=== PATIENT | male | born 1970 | race American Indian/Alaskan Native ===

== ENCOUNTER 2020-02-03 10:01 | Inpatient (IN) | payer SELFPAY ==
[2020-02-03] MEDS ORDERED: SODIUM CHLORIDE 0.9% 1000 ML 1,000 ML IV ONE (10:56)
--- NOTE | 2020-02-03 11:09 | Emergency Department Report ---
ED Altered Mental Status HPI - General Chief Complaint: Medical Clearance Stated Complaint: AMS Time Seen by Provider: 02/03/20 10:56 Source: patient, EMS Mode of arrival: Stretcher Limitations: No Limitations - History of Present Illness Initial Comments: Patient is 49 years old male with history of hypertension, CVA and congestive heart failure. Patient brought to the emergency room via EMS from home after patient became altered and combative with his family. EMS have to sedate the patient with Benadryl, Versed and Haldol for chemical restraint. EMS stated that family for them that he started talking about his son that has been murdered 4 years ago. They stated that he started blaming neighbors and stating that they are the one who kill him. Upon arrival to the ER patient is sedated. Vital signs stable except for slightly low blood pressure of 95/41 patient given normal saline. When examined patient approximately 20 minutes later he is alert but is still confused. Patient is oriented in place, person but not time. Patient is answering most of the questions inappropriately. Patient is kept talking about that his doctor is a captain and he kept mentioning [place] guys and when asking more about that he refused to answer. When asked about if he is depressed or suicidal he refused to answer. Patient also denied alcohol or drug abuse. MD Complaint: altered mental status -: Sudden, This morning Severity: severe Context: unknown - Related Data Home Medications Medication Instructions Recorded Confirmed Last Taken Furosemide [Lasix TAB] 40 mg PO BID 02/03/20 02/03/20 Unknown Glimepiride [Amaryl] 4 mg PO BID 02/03/20 02/03/20 Unknown NIFEdipine [Nifedipine ER] 60 mg PO BID 02/03/20 02/03/20 Unknown Sildenafil [Revatio] 20 mg PO TID PRN 02/03/20 02/03/20 Unknown Simvastatin 20 mg PO QHS 02/03/20 02/03/20 Unknown cloNIDine [Catapres] 0.1 mg PO BID 02/03/20 02/03/20 Unknown hydrALAZINE [Apresoline TAB] 100 mg PO TID 02/03/20 02/03/20 Unknown Allergies Allergy/AdvReac Type Severity Reaction Status Date / Time No Known Allergies Allergy Unverified 03/30/13 10:24 ED Review of Systems ROS: Stated complaint: AMS Other details as noted in HPI Comment: All other systems reviewed and negative Constitutional: denies: chills, fever Respiratory: denies: cough, shortness of breath, SOB with exertion, SOB at rest, wheezing Cardiovascular: denies: chest pain, palpitations Gastrointestinal: denies: abdominal pain, nausea, vomiting Neurological: denies: headache, weakness, numbness, paresthesias, confusion ED Past Medical Hx - Past Medical History Hx Hypertension: Yes (Diagnosed in 2005) Hx CVA: Yes Hx Congestive Heart Failure: Yes (2005) Hx Diabetes: Yes Hx Renal Disease: Yes Hx Asthma: No Hx COPD: No - Surgical History Past Surgical History?: No - Social History Smoking Status: Unknown if ever smoked - Medications Home Medications: Home Medications Medication Instructions Recorded Confirmed Last Taken Type Furosemide [Lasix TAB] 40 mg PO BID 02/03/20 02/03/20 Unknown History Glimepiride [Amaryl] 4 mg PO BID 02/03/20 02/03/20 Unknown History NIFEdipine [Nifedipine ER] 60 mg PO BID 02/03/20 02/03/20 Unknown History Sildenafil [Revatio] 20 mg PO TID PRN 02/03/20 02/03/20 Unknown History Simvastatin 20 mg PO QHS 02/03/20 02/03/20 Unknown History cloNIDine [Catapres] 0.1 mg PO BID 02/03/20 02/03/20 Unknown History hydrALAZINE [Apresoline TAB] 100 mg PO TID 02/03/20 02/03/20 Unknown History ED Physical Exam - General Limitations: No Limitations General appearance: alert, in no apparent distress - Head Head exam: Present: atraumatic, normocephalic, normal inspection - Eye Eye exam: Present: normal appearance, PERRL - ENT ENT exam: Present: normal exam, normal orophraynx, mucous membranes moist - Neck Neck exam: Present: normal inspection, full ROM. Absent: tenderness, meningismus, lymphadenopathy, thyromegaly - Respiratory Respiratory exam: Present: normal lung sounds bilaterally - Cardiovascular Cardiovascular Exam: Present: bradycardia. Absent: irregular rhythm, systolic murmur, diastolic murmur - GI/Abdominal GI/Abdominal exam: Present: soft, normal bowel sounds. Absent: distended, tenderness, guarding, rebound, rigid, organomegaly, mass, bruit, pulsatile mass, hernia - Extremities Exam Extremities exam: Present: normal inspection, full ROM, normal capillary refill. Absent: tenderness, pedal edema, joint swelling, calf tenderness - Back Exam Back exam: Present: normal inspection, full ROM. Absent: CVA tenderness (R), CVA tenderness (L), muscle spasm, paraspinal tenderness, vertebral tenderness - Neurological Exam Neurological exam: Present: alert, altered, CN II-XII intact, reflexes normal. Absent: motor sensory deficit - Psychiatric Psychiatric exam: Present: anxious, manic - Skin Skin exam: Present: warm, intact, normal color - Assessment Assessment Interval: Baseline - Level of Consciousness 1a. Level of Consciousness: alert/keenly responsive - LOC Questions 1b. LOC Questions: answers both correctly - LOC Command 1c. LOC Commands: performs tasks correctly - Best Gaze 2. Best Gaze: normal - Visual 3. Visual: no visual loss - Facial Palsy 4. Facial Palsy: normal symmetrical movement - Motor Arm 5a. Motor Arm Left: no drift 5b. Motor Arm Right: no drift - Motor Leg 6a. Motor Leg Left: no drift 6b. Motor Leg Right: no drift - Limb Ataxia 7. Limb Ataxia: absent - Sensory 8. Sensory: normal - Best Language 9. Best Language: no aphasia - Dysarthria 10. Dysarthria: normal - Extinction and Inattention 11. Extinction/Inattention: no abnormality - Scoring Total Score: 0 Stroke Severity: No Stroke Symptoms ED Course Vital Signs 02/03/20 02/03/20 02/03/20 10:18 10:29 11:01 Temperature 98.0 F Pulse Rate 49 L 50 L Respiratory 16 16 Rate Blood Pressure 167/80 Blood Pressure 95/49 [Right] O2 Sat by Pulse 99 98 100 Oximetry 02/03/20 02/03/20 02/03/20 11:45 12:01 13:40 Temperature Pulse Rate 49 L 56 L Respiratory 16 17 Rate Blood Pressure 174/82 149/102 180/70 Blood Pressure [Right] O2 Sat by Pulse 99 99 Oximetry 02/03/20 02/03/20 02/03/20 14:01 17:57 19:55 Temperature Pulse Rate 50 L 58 L Respiratory 16 21 Rate Blood Pressure 161/67 146/69 Blood Pressure 145/73 [Right] O2 Sat by Pulse 100 Oximetry 02/03/20 02/03/20 02/03/20 19:56 20:00 20:09 Temperature 98.2 F Pulse Rate 66 Respiratory 16 19 Rate Blood Pressure 145/73 Blood Pressure [Right] O2 Sat by Pulse 100 100 Oximetry 02/03/20 02/03/20 02/03/20 20:15 20:31 20:45 Temperature Pulse Rate 60 58 L 57 L Respiratory 14 18 11 L Rate Blood Pressure 145/73 145/73 145/73 Blood Pressure [Right] O2 Sat by Pulse 100 100 100 Oximetry 02/03/20 02/03/20 02/03/20 21:01 21:15 22:02 Temperature Pulse Rate Respiratory Rate Blood Pressure 142/70 142/70 188/77 Blood Pressure [Right] O2 Sat by Pulse 100 100 Oximetry 02/03/20 02/04/20 02/04/20 23:00 00:01 01:01 Temperature Pulse Rate Respiratory Rate Blood Pressure 158/80 162/75 158/77 Blood Pressure [Right] O2 Sat by Pulse Oximetry - Reevaluation(s) Reevaluation #1: 02/03/20 13:46 Patient became agitated and tried to pull the partition between between his rooms and other room and start fighting with other patients. Patient given Geodon 20 mg IM for chemical restraints. - Lab Data Result diagrams: 02/04/20 05:09 02/04/20 05:09 Lab Results 02/03/20 02/03/20 02/03/20 Range/Units 10:50 11:11 11:11 WBC 4.6 (4.5-11.0) K/mm3 RBC 4.08 (3.65-5.03) M/mm3 Hgb 12.2 (11.8-15.2) gm/dl Hct 36.4 (35.5-45.6) % MCV 89 (84-94) fl MCH 30 (28-32) pg MCHC 34 (32-34) % RDW 12.7 L (13.2-15.2) % Plt Count 186 (140-440) K/mm3 Lymph % (Auto) 22.5 (13.4-35.0) % [place] % (Auto) 19.3 H (0.0-7.3) % Eos % (Auto) 2.1 (0.0-4.3) % Baso % (Auto) 1.0 (0.0-1.8) % Lymph # 1.0 L (1.2-5.4) K/mm3 [place] # 0.9 H (0.0-0.8) K/mm3 Eos # 0.1 (0.0-0.4) K/mm3 Baso # 0.0 (0.0-0.1) K/mm3 Seg Neutrophils % 55.1 (40.0-70.0) % Seg Neutrophils # 2.5 (1.8-7.7) K/mm3 PT 13.8 (12.2-14.9) Sec. INR 1.05 (0.87-1.13) APTT 31.9 (24.2-36.6) Sec. Sodium (137-145) mmol/L Potassium (3.6-5.0) mmol/L Chloride (98-107) mmol/L Carbon Dioxide (22-30) mmol/L Anion Gap mmol/L BUN (9-20) mg/dL Creatinine (0.8-1.5) mg/dL Estimated GFR ml/min BUN/Creatinine Ratio % Glucose (75-100) mg/dL Lactic Acid (0.7-2.0) mmol/L Calcium (8.4-10.2) mg/dL Total Bilirubin (0.1-1.2) mg/dL Direct Bilirubin (0-0.2) mg/dL AST (5-40) units/L ALT (7-56) units/L Alkaline Phosphatase (35-129) units/L Ammonia (25-60) umol/L Troponin T (0.00-0.029) ng/mL Total Protein (6.3-8.2) g/dL Albumin (3.9-5) g/dL Albumin/Globulin Ratio % Triglycerides (2-149) mg/dL Cholesterol (50-199) mg/dL LDL Cholesterol Direct (50-130) mg/dL HDL Cholesterol (40-59) mg/dL Cholesterol/HDL Ratio % Urine Color (Yellow) Urine Turbidity (Clear) Urine pH (5.0-7.0) Ur Specific [place] (1.003-1.030) Urine Protein (Negative) mg/dL Urine Glucose (UA) (Negative) mg/dL Urine Ketones (Negative) mg/dL Urine Blood (Negative) Urine Nitrite (Negative) Urine Bilirubin (Negative) Urine Urobilinogen (<2.0) mg/dL Ur Leukocyte Esterase (Negative) Urine WBC (Auto) (0.0-6.0) /HPF Urine RBC (Auto) (0.0-6.0) /HPF Salicylates (2.8-20.0) mg/dL Urine Opiates Screen Negative Urine Methadone Screen Negative Acetaminophen (10.0-30.0) ug/mL Ur Barbiturates Screen Negative Ur Phencyclidine Scrn Negative Ur Amphetamines Screen Negative U Benzodiazepines Scrn Negative Urine Cocaine Screen Negative U Marijuana (THC) Screen Negative Drugs of Abuse Note Disclamer Plasma/Serum Alcohol (0-0.07) % 02/03/20 02/03/20 02/03/20 Range/Units 11:11 11:11 11:11 WBC (4.5-11.0) K/mm3 RBC (3.65-5.03) M/mm3 Hgb (11.8-15.2) gm/dl Hct (35.5-45.6) % MCV (84-94) fl MCH (28-32) pg MCHC (32-34) % RDW (13.2-15.2) % Plt Count (140-440) K/mm3 Lymph % (Auto) (13.4-35.0) % [place] % (Auto) (0.0-7.3) % Eos % (Auto) (0.0-4.3) % Baso % (Auto) (0.0-1.8) % Lymph # (1.2-5.4) K/mm3 [place] # (0.0-0.8) K/mm3 Eos # (0.0-0.4) K/mm3 Baso # (0.0-0.1) K/mm3 Seg Neutrophils % (40.0-70.0) % Seg Neutrophils # (1.8-7.7) K/mm3 PT (12.2-14.9) Sec. INR (0.87-1.13) APTT (24.2-36.6) Sec. Sodium 144 (137-145) mmol/L Potassium 3.0 L (3.6-5.0) mmol/L Chloride 97.9 L (98-107) mmol/L Carbon Dioxide 30 (22-30) mmol/L Anion Gap 19 mmol/L BUN 30 H (9-20) mg/dL Creatinine 4.2 H (0.8-1.5) mg/dL Estimated GFR 18 ml/min BUN/Creatinine Ratio 7 % Glucose 53 L (75-100) mg/dL Lactic Acid 1.00 (0.7-2.0) mmol/L Calcium 11.1 H (8.4-10.2) mg/dL Total Bilirubin 0.50 (0.1-1.2) mg/dL Direct Bilirubin < 0.2 (0-0.2) mg/dL AST 40 (5-40) units/L ALT 17 (7-56) units/L Alkaline Phosphatase 38 (35-129) units/L Ammonia (25-60) umol/L Troponin T 0.084 H (0.00-0.029) ng/mL Total Protein 7.1 (6.3-8.2) g/dL Albumin 4.7 (3.9-5) g/dL Albumin/Globulin Ratio 2.0 % Triglycerides 114 (2-149) mg/dL Cholesterol 102 (50-199) mg/dL LDL Cholesterol Direct 45 L (50-130) mg/dL HDL Cholesterol 48 (40-59) mg/dL Cholesterol/HDL Ratio 2.12 % Urine Color (Yellow) Urine Turbidity (Clear) Urine pH (5.0-7.0) Ur Specific [place] (1.003-1.030) Urine Protein (Negative) mg/dL Urine Glucose (UA) (Negative) mg/dL Urine Ketones (Negative) mg/dL Urine Blood (Negative) Urine Nitrite (Negative) Urine Bilirubin (Negative) Urine Urobilinogen (<2.0) mg/dL Ur Leukocyte Esterase (Negative) Urine WBC (Auto) (0.0-6.0) /HPF Urine RBC (Auto) (0.0-6.0) /HPF Salicylates < 0.3 L (2.8-20.0) mg/dL Urine Opiates Screen Urine Methadone Screen Acetaminophen (10.0-30.0) ug/mL Ur Barbiturates Screen Ur Phencyclidine Scrn Ur Amphetamines Screen U Benzodiazepines Scrn Urine Cocaine Screen U Marijuana (THC) Screen Drugs of Abuse Note Plasma/Serum Alcohol (0-0.07) % 02/03/20 02/03/20 02/03/20 Range/Units 11:11 11:11 11:11 WBC (4.5-11.0) K/mm3 RBC (3.65-5.03) M/mm3 Hgb (11.8-15.2) gm/dl Hct (35.5-45.6) % MCV (84-94) fl MCH (28-32) pg MCHC (32-34) % RDW (13.2-15.2) % Plt Count (140-440) K/mm3 Lymph % (Auto) (13.4-35.0) % [place] % (Auto) (0.0-7.3) % Eos % (Auto) (0.0-4.3) % Baso % (Auto) (0.0-1.8) % Lymph # (1.2-5.4) K/mm3 [place] # (0.0-0.8) K/mm3 Eos # (0.0-0.4) K/mm3 Baso # (0.0-0.1) K/mm3 Seg Neutrophils % (40.0-70.0) % Seg Neutrophils # (1.8-7.7) K/mm3 PT (12.2-14.9) Sec. INR (0.87-1.13) APTT (24.2-36.6) Sec. Sodium (137-145) mmol/L Potassium (3.6-5.0) mmol/L Chloride (98-107) mmol/L Carbon Dioxide (22-30) mmol/L Anion Gap mmol/L BUN (9-20) mg/dL Creatinine (0.8-1.5) mg/dL Estimated GFR ml/min BUN/Creatinine Ratio % Glucose (75-100) mg/dL Lactic Acid (0.7-2.0) mmol/L Calcium (8.4-10.2) mg/dL Total Bilirubin (0.1-1.2) mg/dL Direct Bilirubin (0-0.2) mg/dL AST (5-40) units/L ALT (7-56) units/L Alkaline Phosphatase (35-129) units/L Ammonia 43.0 (25-60) umol/L Troponin T (0.00-0.029) ng/mL Total Protein (6.3-8.2) g/dL Albumin (3.9-5) g/dL Albumin/Globulin Ratio % Triglycerides (2-149) mg/dL Cholesterol (50-199) mg/dL LDL Cholesterol Direct (50-130) mg/dL HDL Cholesterol (40-59) mg/dL Cholesterol/HDL Ratio % Urine Color (Yellow) Urine Turbidity (Clear) Urine pH (5.0-7.0) Ur Specific [place] (1.003-1.030) Urine Protein (Negative) mg/dL Urine Glucose (UA) (Negative) mg/dL Urine Ketones (Negative) mg/dL Urine Blood (Negative) Urine Nitrite (Negative) Urine Bilirubin (Negative) Urine Urobilinogen (<2.0) mg/dL Ur Leukocyte Esterase (Negative) Urine WBC (Auto) (0.0-6.0) /HPF Urine RBC (Auto) (0.0-6.0) /HPF Salicylates (2.8-20.0) mg/dL Urine Opiates Screen Urine Methadone Screen Acetaminophen < 5.0 L (10.0-30.0) ug/mL Ur Barbiturates Screen Ur Phencyclidine Scrn Ur Amphetamines Screen U Benzodiazepines Scrn Urine Cocaine Screen U Marijuana (THC) Screen Drugs of Abuse Note Plasma/Serum Alcohol < 0.01 (0-0.07) % 02/03/20 02/03/20 Range/Units 11:16 14:30 WBC (4.5-11.0) K/mm3 RBC (3.65-5.03) M/mm3 Hgb (11.8-15.2) gm/dl Hct (35.5-45.6) % MCV (84-94) fl MCH (28-32) pg MCHC (32-34) % RDW (13.2-15.2) % Plt Count (140-440) K/mm3 Lymph % (Auto) (13.4-35.0) % [place] % (Auto) (0.0-7.3) % Eos % (Auto) (0.0-4.3) % Baso % (Auto) (0.0-1.8) % Lymph # (1.2-5.4) K/mm3 [place] # (0.0-0.8) K/mm3 Eos # (0.0-0.4) K/mm3 Baso # (0.0-0.1) K/mm3 Seg Neutrophils % (40.0-70.0) % Seg Neutrophils # (1.8-7.7) K/mm3 PT (12.2-14.9) Sec. INR (0.87-1.13) APTT (24.2-36.6) Sec. Sodium (137-145) mmol/L Potassium (3.6-5.0) mmol/L Chloride (98-107) mmol/L Carbon Dioxide (22-30) mmol/L Anion Gap mmol/L BUN (9-20) mg/dL Creatinine (0.8-1.5) mg/dL Estimated GFR ml/min BUN/Creatinine Ratio % Glucose (75-100) mg/dL Lactic Acid (0.7-2.0) mmol/L Calcium (8.4-10.2) mg/dL Total Bilirubin (0.1-1.2) mg/dL Direct Bilirubin (0-0.2) mg/dL AST (5-40) units/L ALT (7-56) units/L Alkaline Phosphatase (35-129) units/L Ammonia (25-60) umol/L Troponin T 0.073 H (0.00-0.029) ng/mL Total Protein (6.3-8.2) g/dL Albumin (3.9-5) g/dL Albumin/Globulin Ratio % Triglycerides (2-149) mg/dL Cholesterol (50-199) mg/dL LDL Cholesterol Direct (50-130) mg/dL HDL Cholesterol (40-59) mg/dL Cholesterol/HDL Ratio % Urine Color Straw (Yellow) Urine Turbidity Clear (Clear) Urine pH 8.0 H (5.0-7.0) Ur Specific [place] 1.007 (1.003-1.030) Urine Protein 30 mg/dl (Negative) mg/dL Urine Glucose (UA) >=500 (Negative) mg/dL Urine Ketones Neg (Negative) mg/dL Urine Blood Neg (Negative) Urine Nitrite Neg (Negative) Urine Bilirubin Neg (Negative) Urine Urobilinogen < 2.0 (<2.0) mg/dL Ur Leukocyte Esterase Neg (Negative) Urine WBC (Auto) < 1.0 (0.0-6.0) /HPF Urine RBC (Auto) 1.0 (0.0-6.0) /HPF Salicylates (2.8-20.0) mg/dL Urine Opiates Screen Urine Methadone Screen Acetaminophen (10.0-30.0) ug/mL Ur Barbiturates Screen Ur Phencyclidine Scrn Ur Amphetamines Screen U Benzodiazepines Scrn Urine Cocaine Screen U Marijuana (THC) Screen Drugs of Abuse Note Plasma/Serum Alcohol (0-0.07) % - EKG Data -: EKG Interpreted by Me EKG shows normal: sinus rhythm Rate: bradycardia Interpretation: no acute changes - Radiology Data Radiology results: report reviewed - Medical Decision Making Patient is 49 years old male with history of hypertension, CVA and congestive heart failure. Patient brought to the emergency room via EMS from home after patient became altered and combative with his family. EMS have to sedate the patient with Benadryl, Versed and Haldol for chemical restraint. EMS stated that family for them that he started talking about his son that has been murdered 4 years ago. They stated that he started blaming neighbors and stating that they are the one who kill him. Upon arrival to the ER patient is sedated. Vital signs stable except for slightly low blood pressure of 95/41 patient given normal saline. When examined patient approximately 20 minutes later he is alert but is still confused. Patient is oriented in place, person but not time. Patient is answering most of the questions inappropriately. Patient is kept talking about that his doctor is a captain and he kept mentioning [place] guys and when asking more about that he refused to answer. When asked about if he is depressed or suicidal he refused to answer. Patient also denied alcohol or drug abuse. CT brain is unremarkable. Labs showed creatinine of 4.2 and a BUN of 30. Patient last creatinine was 2 indicating possible acute on chronic renal failu re, patient started on normal saline. I discussed the patient with Dr. Sahni, he agreed to admit the patient to medical service for further management. Critical Care Time: Yes Critical care time in (mins) excluding proc time.: 30 Critical care attestation.: If time is entered above; I have spent that time in minutes in the direct care of this critically ill patient, excluding procedure time. ED Disposition Clinical Impression: Acute on chronic renal failure, Altered mental status, Hypokalemia Disposition: OP ADMIT IP TO THIS HOSP Is pt being admited?: Yes Condition: Stable
[2020-02-03 11:14] LABS: Amphetamine Screen,Urine Negative; Benzodiazepines Screen,Urine Negative; Cannabinoid Screen,Urine Negative; Cocaine Screen,Urine Negative; Methadone Screen,Urine Negative; Opiate Screen,Urine Negative
[2020-02-03 11:37] LABS: Eosinophils # (Auto) 0.1 K/mm3 (0.0-0.4); Eosinophils % (Auto) 2.1 % (0.0-4.3); Monocytes # (Auto) 0.9 K/mm3 (0.0-0.8); Monocytes % (Auto) 19.3 % (0.0-7.3)
[2020-02-03 11:41] LABS: INR 1.05 (0.87-1.13)
[2020-02-03 11:42] LABS: Hematocrit 36.4 % (35.5-45.6); Hemoglobin 12.2 gm/dl (11.8-15.2); Lymphocytes % (Auto) 22.5 % (13.4-35.0); Mean Corpuscular HGB Conc 34 % (32-34); Mean Corpuscular Volume 89 fl (84-94); Partial Thromboplastin Time 31.9 Sec. (24.2-36.6); Platelet Count 186 K/mm3 (140-440); Red Blood Count 4.08 M/mm3 (3.65-5.03); Red Cell Distribution Width 12.7 % (13.2-15.2)
[2020-02-03 11:59] LABS: Alanine Aminotransferase 17 units/L (7-56); Albumin 4.7 g/dL (3.9-5); BUN/Creatinine Ratio 7; Blood Urea Nitrogen 30 mg/dL (9-20); Calcium 11.1 mg/dL (8.4-10.2); Hemolysis Index 27
[2020-02-03 12:20] LABS: Bilirubin,Direct < 0.2 mg/dL (0-0.2)
[2020-02-03 12:42] LABS: Chol/HDL Ratio 2.12 %; HDL Cholesterol 48 mg/dL (40-59); LDL Cholesterol,Direct 45 mg/dL (50-130)
[2020-02-03] MEDS ORDERED: POTASSIUM CHLORIDE ER 20 MEQ TAB PO ONE (13:02)
[2020-02-03] MEDS ORDERED: ZIPRASIDONE MESYLATE 20 MG VIAL IM ONE (13:41)
--- NOTE | 2020-02-03 13:48 | Cat Scan Report ---
CT head/brain wo con INDICATION / CLINICAL INFORMATION: 49 years Male; MAIN. TECHNIQUE: Routine CT head without contrast. All CT scans at this location are performed using CT dos e reduction for AL[place] by means of automated exposure control. COMPARISON: None. FINDINGS: BRAIN / INTRACRANIAL CONTENTS: The brain demonstrate appropriate attenuation. The ventricular system is within normal limits in size and configuration. There is no CT evidence of acute intracranial hemo rrhage or significant mass effect. ORBITS: No significant abnormality of visualized orbits. SINUSES / MASTOIDS: No significant abnormality in the visualized paranasal sinuses or mastoid air cait ls. CRANIOCERVICAL JUNCTION: No significant abnormality. ADDITIONAL FINDINGS: None. IMPRESSION: 1. There is no CT evidence of acute intracranial process. Signer Name: Lacho Woodard MD Signed: 02/03/2020 1:43 PM Workstation Name: [id number]
[2020-02-03] MEDS ORDERED: NON-FORMULARY EACH (Nifedipine [Nifedipine Er] 60 MG) PO SCH (23:45)
[2020-02-03] MEDS ORDERED: SODIUM CHLORIDE 0.9% 1000 ML 1,000 ML IV SCH (23:45)
--- NOTE | 2020-02-03 23:53 | History and Physical Report ---
History of Present Illness Date of examination: 02/03/20 Date of admission: 02/03/20 16:11 Chief complaint: Acute onset of confusion and delirium for the last 3 to 4 hours History of present illness: 49-year-old male with history of hypertension, cerebrovascular accident, congestive heart failure, T2 DM, pulmonary hypertension and hyperlipidemia brought into the emergency room via EMS because patient became confused altered and combative. EMS had to sedate with Versed Benadryl and Haldol for chemical restraints. Patient has been delusional. Patient has been talking about his moderate swelling from 4 years ago. Patient started blaming neighbors and radiating the one who killed him. In the emergency room patient was sedated and had a blood pressure of 95/41. Patient was given fluid bolus in the emergency room and 20 minutes later he was more alert but still confused. Patient is oriented in place and person but not time. In the emergency room patient has been delusional and was talking back his doctor is a captain and kept mentioning about some [place] denies. Patient was still confused during my exam but was more alert. Oriented to some extent. But delusional. No fever or chills. No exposure to coronavirus. - Past Medical History Hypertension: Yes (Diagnosed in 2005) CVA: Yes Congestive Heart Failure: Yes (2005) Diabetes: Yes Renal Disease: Yes Surgical History Past Surgical History?: No - Social History Smoking Status: Unknown if ever smoked Family history Htn - Medications Home Medications: Home Medications Medication Instructions Recorded Confirmed Last Taken Type Furosemide [Lasix TAB] 40 mg PO BID 02/03/20 02/03/20 Unknown History Glimepiride [Amaryl] 4 mg PO BID 02/03/20 02/03/20 Unknown History NIFEdipine [Nifedipine ER] 60 mg PO BID 02/03/20 02/03/20 Unknown History Sildenafil [Revatio] 20 mg PO TID PRN 02/03/20 02/03/20 Unknown History Simvastatin 20 mg PO QHS 02/03/20 02/03/20 Unknown History cloNIDine [Catapres] 0.1 mg PO BID 02/03/20 02/03/20 Unknown History hydrALAZINE [Apresoline TAB] 100 mg PO TID 02/03/20 02/03/20 Unknown History Review of Systems ROS: [employer] acute onset of confusion and delirium Constitutional no weight loss or weight gain no fever or chills HEENT no sore throat no post nasal drip no diplopia Neck no neck stiffness no lymph gland enlargement Chest and lungs no shortness of breath cough or wheezing CVS no chest pain no diaphoresis no palpitations GI no nausea no vomiting no diarrhea Genitourinary system no dysuria no flank pain Musculoskeletal system no muscle pains no joint pains Skin no rash no itching Psychiatric no depression no homicidal or suicidal tendencies Hematologic no lymphedema or bruising Endocrine no polydipsia no polyuria no cold intolerance no heat intolerance Medications and Allergies Allergies Allergy/AdvReac Type Severity Reaction Status Date / Time No Known Allergies Allergy Unverified 03/30/13 10:24 Home Medications Medication Instructions Recorded Confirmed Last Taken Type Furosemide [Lasix TAB] 40 mg PO BID 02/03/20 02/03/20 Unknown History Glimepiride [Amaryl] 4 mg PO BID 02/03/20 02/03/20 Unknown History NIFEdipine [Nifedipine ER] 60 mg PO BID 02/03/20 02/03/20 Unknown History Sildenafil [Revatio] 20 mg PO TID PRN 02/03/20 02/03/20 Unknown History Simvastatin 20 mg PO QHS 02/03/20 02/03/20 Unknown History cloNIDine [Catapres] 0.1 mg PO BID 02/03/20 02/03/20 Unknown History hydrALAZINE [Apresoline TAB] 100 mg PO TID 02/03/20 02/03/20 Unknown History Exam - Constitutional Vitals: Temp Pulse Resp BP Pulse Ox 98.2 F 57 L 11 L 188/77 100 02/03/20 20:09 02/03/20 20:45 02/03/20 20:45 02/03/20 22:02 02/03/20 21:15 General appearance: Present: no acute distress, well-nourished - EENT Eyes: Present: PERRL ENT: hearing intact, clear oral mucosa - Neck Neck: Present: supple, normal ROM - Respiratory Respiratory effort: normal Respiratory: bilateral: CTA - Cardiovascular Heart rate: 54 Rhythm: regular Heart Sounds: Present: S1 & S2. Absent: rub, click - Extremities Extremities: no ischemia, pulses symmetrical, No edema Peripheral Pulses: within normal limits - Abdominal General gastrointestinal: Present: soft, non-tender, non-distended, normal bowel sounds Male genitourinary: Present: normal - Rectal Rectal Exam: deferred - Integumentary Integumentary: Present: clear, warm, dry - Musculoskeletal Musculoskeletal: gait normal, strength equal bilaterally - Psychiatric Psychiatric: appropriate mood/affect, intact judgment & insight, cooperative - Neurologic Neurologic: CNII-XII intact, moves all extremities, other (Delirious) - Allied Health Allied health notes reviewed: nursing, case management HEART Score - HEART Score History: Slightly suspicious EKG: Non-specific Risk factors: 1-2 risk factors Troponin: Troponin T 0.073 ng/mL (0.00-0.029) H 02/03/20 14:30 - Critical Actions Critical Actions: 0-3 pts:0.9-1.7%risk of adverse cardiac event.Candidate for discharge Results - Labs CBC & Chem 7: 02/04/20 05:09 02/03/20 11:11 Labs: Laboratory Last Values WBC 4.6 K/mm3 (4.5-11.0) 02/03/20 11:11 RBC 4.08 M/mm3 (3.65-5.03) 02/03/20 11:11 Hgb 12.2 gm/dl (11.8-15.2) 02/03/20 11:11 Hct 36.4 % (35.5-45.6) 02/03/20 11:11 MCV 89 fl (84-94) 02/03/20 11:11 MCH 30 pg (28-32) 02/03/20 11:11 MCHC 34 % (32-34) 02/03/20 11:11 RDW 12.7 % (13.2-15.2) L 02/03/20 11:11 Plt Count 186 K/mm3 (140-440) 02/03/20 11:11 Lymph % (Auto) 22.5 % (13.4-35.0) 02/03/20 11:11 [place] % (Auto) 19.3 % (0.0-7.3) H 02/03/20 11:11 Eos % (Auto) 2.1 % (0.0-4.3) 02/03/20 11:11 Baso % (Auto) 1.0 % (0.0-1.8) 02/03/20 11:11 Lymph # 1.0 K/mm3 (1.2-5.4) L 02/03/20 11:11 [place] # 0.9 K/mm3 (0.0-0.8) H 02/03/20 11:11 Eos # 0.1 K/mm3 (0.0-0.4) 02/03/20 11:11 Baso # 0.0 K/mm3 (0.0-0.1) 02/03/20 11:11 Seg Neutrophils % 55.1 % (40.0-70.0) 02/03/20 11:11 Seg Neutrophils # 2.5 K/mm3 (1.8-7.7) 02/03/20 11:11 PT 13.8 Sec. (12.2-14.9) 02/03/20 11:11 INR 1.05 (0.87-1.13) 02/03/20 11:11 APTT 31.9 Sec. (24.2-36.6) 02/03/20 11:11 Sodium 144 mmol/L (137-145) 02/03/20 11:11 Potassium 3.0 mmol/L (3.6-5.0) L 02/03/20 11:11 Chloride 97.9 mmol/L (98-107) L 02/03/20 11:11 Carbon Dioxide 30 mmol/L (22-30) 02/03/20 11:11 Anion Gap 19 mmol/L 02/03/20 11:11 BUN 30 mg/dL (9-20) H 02/03/20 11:11 Creatinine 4.2 mg/dL (0.8-1.5) H 02/03/20 11:11 Estimated GFR 18 ml/min 02/03/20 11:11 BUN/Creatinine Ratio 7 % 02/03/20 11:11 Glucose 53 mg/dL (75-100) L 02/03/20 11:11 Lactic Acid 1.00 mmol/L (0.7-2.0) 02/03/20 11:11 Calcium 11.1 mg/dL (8.4-10.2) H 02/03/20 11:11 Total Bilirubin 0.50 mg/dL (0.1-1.2) 02/03/20 11:11 Direct Bilirubin < 0.2 mg/dL (0-0.2) 02/03/20 11:11 AST 40 units/L (5-40) 02/03/20 11:11 ALT 17 units/L (7-56) 02/03/20 11:11 Alkaline Phosphatase 38 units/L (35-129) 02/03/20 11:11 Ammonia 43.0 umol/L (25-60) 02/03/20 11:11 Troponin T 0.073 ng/mL (0.00-0.029) H 02/03/20 14:30 Total Protein 7.1 g/dL (6.3-8.2) 02/03/20 11:11 Albumin 4.7 g/dL (3.9-5) 02/03/20 11:11 Albumin/Globulin Ratio 2.0 % 02/03/20 11:11 Triglycerides 114 mg/dL (2-149) 02/03/20 11:11 Cholesterol 102 mg/dL (50-199) 02/03/20 11:11 LDL Cholesterol Direct 45 mg/dL (50-130) L 02/03/20 11:11 HDL Cholesterol 48 mg/dL (40-59) 02/03/20 11:11 Cholesterol/HDL Ratio 2.12 % 02/03/20 11:11 Salicylates < 0.3 mg/dL (2.8-20.0) L 02/03/20 11:11 Urine Opiates Screen Negative 02/03/20 10:50 Urine Methadone Screen Negative 02/03/20 10:50 Acetaminophen < 5.0 ug/mL (10.0-30.0) L 02/03/20 11:11 Ur Barbiturates Screen Negative 02/03/20 10:50 Ur Phencyclidine Scrn Negative 02/03/20 10:50 Ur Amphetamines Screen Negative 02/03/20 10:50 U Benzodiazepines Scrn Negative 02/03/20 10:50 Urine Cocaine Screen Negative 02/03/20 10:50 U Marijuana (THC) Screen Negative 02/03/20 10:50 Drugs of Abuse Note Disclamer 02/03/20 10:50 Plasma/Serum Alcohol < 0.01 % (0-0.07) 02/03/20 11:11 Short CBC 02/03/20 02/04/20 Range/Units 11:11 05:09 WBC 4.6 3.2 L (4.5-11.0) K/mm3 Hgb 12.2 13.2 (11.8-15.2) gm/dl Hct 36.4 39.4 (35.5-45.6) % Plt Count 186 184 (140-440) K/mm3 BMP 02/03/20 11:11 Sodium 144 Potassium 3.0 L Chloride 97.9 L Carbon Dioxide 30 BUN 30 H Creatinine 4.2 H Glucose 53 L Calcium 11.1 H Cardiac Enzymes 02/03/20 02/03/20 Range/Units 11:11 14:30 Troponin T 0.084 H 0.073 H (0.00-0.029) ng/mL Liver Function 02/03/20 Range/Units 11:11 Total Bilirubin 0.50 (0.1-1.2) mg/dL Direct Bilirubin < 0.2 (0-0.2) mg/dL AST 40 (5-40) units/L ALT 17 (7-56) units/L Alkaline Phosphatase 38 (35-129) units/L Albumin 4.7 (3.9-5) g/dL Urine 02/03/20 Range/Units 11:16 Urine Color Straw (Yellow) Urine pH 8.0 H (5.0-7.0) Ur Specific [place] 1.007 (1.003-1.030) Urine Protein 30 mg/dl (Negative) mg/dL Urine Glucose (UA) >=500 (Negative) mg/dL - Imaging and Cardiology EKG: report reviewed (Sinus bradycardia heart rate of 54/min) Assessment and Plan Advance Directives: Yes (Full code) VTE prophylaxis?: Chemical Plan of care discussed with patient/family: Yes - Patient Problems (1) Acute encephalopathy Current Visit: Yes Status: Acute Plan to address problem: Etiology unclear Patient is delirious Will admit in observation for 23 hours We will get MRI brain Mental health consult No focal deficits (2) Acute psychosis Current Visit: Yes Status: Acute Plan to address problem: Etiology unclear Patient was given Haldol and Geodon in the emergency room/by EMS Mental health consult requested (3) Hypokalemia Current Visit: Yes Status: Acute Plan to address problem: Supplemented (4) ARIAS (acute kidney injury) Current Visit: Yes Status: Acute Plan to address problem: Probably secondary to ATN superimposed on chronic kidney disease Fluid challenge for 12 hours Baseline BUN/creatinine was 19 and 2.0 in 2013 which was his last admission for pneumonia (5) Hypertension Current Visit: Yes Status: Chronic Qualifiers: Hypertension type: essential hypertension Qualified Code(s): I10 - Essential (primary) hypertension Plan to address problem: Continue antihypertensive Adjust medications as necessary (6) T2DM (type 2 diabetes mellitus) Current Visit: Yes Status: Chronic Qualifiers: Diabetes mellitus middle or intermediate school principal insulin use: unspecified alf insulin use status Plan to address problem: Continue oral hypoglycemics and coverage (7) CHF (congestive heart failure) Current Visit: Yes Status: Chronic Qualifiers: Heart failure type: combined systolic and diastolic Plan to address problem: Continue Lasix (8) Pulmonary hypertension Current Visit: Yes Status: Chronic Plan to address problem: Patient on sildenafil 20 mg 3 times a day-continue the same (9) Hyperlipidemia Current Visit: Yes Status: Chronic Qualifiers: Hyperlipidemia type: mixed hyperlipidemia Qualified Code(s): E78.2 - Mixed hyperlipidemia Plan to address problem: Continue statins (10) DVT prophylaxis Current Visit: Yes Status: Acute Plan to address problem: On heparin and GI prophylaxis
[2020-02-03] MEDS ORDERED: SILDENAFIL 20 MG TAB PO PRN (23:54)
[2020-02-03] MEDS ORDERED: ACETAMINOPHEN 325 MG TAB PO PRN (23:55)
[2020-02-03] MEDS ORDERED: ONDANSETRON 4 MG/2 ML INJ IV PRN (23:55)
[2020-02-03] MEDS ORDERED: HYDROmorphone 1 MG/1 ML INJ IV PRN (23:56)
[2020-02-03] MEDS ORDERED: oxyCODONE /ACETAMINOPHEN 5-325MG TAB PO PRN (23:56)
[2020-02-04 01:55] LABS: Bilirubin,Urine NEG (Negative); Blood,Urine NEG (Negative); Color,Urine Straw (Yellow); Urobilinogen,Urine < 2.0 mg/dL (<2.0); WBC,Urine < 1.0 /HPF (0.0-6.0)
[2020-02-04] MEDS: cloNIDine 0.1 MG TAB PO SCH ×2 (02:10→10:12)
[2020-02-04] MEDS: NIFEdipine XL 60 MG TAB PO SCH ×2 (02:10→10:12)
[2020-02-04 06:10] LABS: Hematocrit 39.4 % (35.5-45.6); Hemoglobin 13.2 gm/dl (11.8-15.2); Mean Corpuscular HGB Conc 33 % (32-34); Mean Corpuscular Volume 90 fl (84-94); Platelet Count 184 K/mm3 (140-440); Red Blood Count 4.37 M/mm3 (3.65-5.03); Red Cell Distribution Width 12.9 % (13.2-15.2)
[2020-02-04 06:30] LABS: Albumin 4.4 g/dL (3.9-5); Calcium 9.7 mg/dL (8.4-10.2)
[2020-02-04 07:01] LABS: Basophils % (Manual) 0 % (0.0-1.8); Total Cells Counted 100
[2020-02-04 07:02] LABS: Platelet Estimate Consistent w Auto
[2020-02-04] MEDS ORDERED: hydrALAZINE 100 MG TAB PO SCH (08:00)
--- NOTE | 2020-02-04 09:34 | Progress Note ---
Assessment and Plan Assessment and plan: 49-year-old male with history of hypertension, cerebrovascular accident, congestive heart failure, T2 DM, pulmonary hypertension and hyperlipidemia brought into the emergency room via EMS because patient became confused altered and combative. EMS had to sedate with Versed Benadryl and Haldol for chemical restraints. Patient has been delusional. Patient has been talking about his moderate swelling from 4 years ago. Patient started blaming neighbors and radiating the one who killed him. In the emergency room patient was sedated and had a blood pressure of 95/41. Patient was given fluid bolus in the emergency room and 20 minutes later he was more alert but still confused. Patient is oriented in place and person but not time. In the emergency room patient has been delusional and was talking back his doctor is a captain and kept mentioning about some [place] denies. Patient was still confused during my exam but was more alert. Oriented to some extent. But delusional. No fever or chills. No exposure to coronavirus. CT: IMPRESSION: 1. There is no CT evidence of acute intracranial process. 02/03: Renal function is improving, cardiology consult for Type 2 [place], await nephrology and Mental health consult. Will speak to family. (1) Acute encephalopathy Current Visit: Yes Status: Acute Plan to address problem: Etiology unclear Patient is delirious Will admit in observation for 23 hours We will get MRI brain Mental health consult No focal deficits (2) Acute psychosis Current Visit: Yes Status: Acute Plan to address problem: Etiology unclear Patient was given Haldol and Geodon in the emergency room/by EMS Mental health consult requested (3) Hypokalemia Current Visit: Yes Status: Acute Plan to address problem: Supplemented (4) ARIAS (acute kidney injury) Current Visit: Yes Status: Acute Plan to address problem: Probably secondary to ATN superimposed on chronic kidney disease Fluid challenge for 12 hours Baseline BUN/creatinine was 19 and 2.0 in 2013 which was his last admission for pneumonia (5) Hypertension Current Visit: Yes Status: Chronic Qualifiers: Hypertension type: essential hypertension Qualified Code(s): I10 - Essential (primary) hypertension Plan to address problem: Continue antihypertensive Adjust medications as necessary (6) T2DM (type 2 diabetes mellitus) Current Visit: Yes Status: Chronic Qualifiers: Diabetes mellitus terminal gauger insulin use: unspecified terminal gauger insulin use status Plan to address problem: Continue oral hypoglycemics and coverage (7) CHF (congestive heart failure) Current Visit: Yes Status: Chronic Qualifiers: Heart failure type: combined systolic and diastolic Plan to address problem: Continue Lasix (8) Pulmonary hypertension Current Visit: Yes Status: Chronic Plan to address problem: Patient on sildenafil 20 mg 3 times a day-continue the same (9) Hyperlipidemia Current Visit: Yes Status: Chronic Qualifiers: Hyperlipidemia type: mixed hyperlipidemia Qualified Code(s): E78.2 - Mixed hyperlipidemia Plan to address problem: Continue statins (10) DVT prophylaxis Current Visit: Yes Status: Acute Plan to address problem: On heparin and GI prophylaxis Hospitalist Physical - Constitutional Vitals: Temp Pulse Resp BP Pulse Ox 98.5 F 58 L 18 135/77 99 02/04/20 07:45 02/04/20 07:45 02/04/20 07:45 02/04/20 07:45 02/04/20 07:45 General appearance: Present: no acute distress, well-nourished HEART Score - HEART Score EKG: Non-specific Risk factors: 1-2 risk factors Troponin: Troponin T 0.073 ng/mL (0.00-0.029) H 02/03/20 14:30 - Critical Actions Critical Actions: 0-3 pts:0.9-1.7%risk of adverse cardiac event.Candidate for discharge Results - Labs CBC & Chem 7: 02/04/20 05:09 02/04/20 05:09 Labs: Laboratory Last Values WBC 3.2 K/mm3 (4.5-11.0) L 02/04/20 05:09 RBC 4.37 M/mm3 (3.65-5.03) 02/04/20 05:09 Hgb 13.2 gm/dl (11.8-15.2) 02/04/20 05:09 Hct 39.4 % (35.5-45.6) 02/04/20 05:09 MCV 90 fl (84-94) 02/04/20 05:09 MCH 30 pg (28-32) 02/04/20 05:09 MCHC 33 % (32-34) 02/04/20 05:09 RDW 12.9 % (13.2-15.2) L 02/04/20 05:09 Plt Count 184 K/mm3 (140-440) 02/04/20 05:09 Lymph % (Auto) 22.5 % (13.4-35.0) 02/03/20 11:11 [place] % (Auto) [place] 02/04/20 05:09 Eos % (Auto) 2.1 % (0.0-4.3) 02/03/20 11:11 Baso % (Auto) 1.0 % (0.0-1.8) 02/03/20 11:11 Lymph # 1.0 K/mm3 (1.2-5.4) L 02/03/20 11:11 [place] # 0.9 K/mm3 (0.0-0.8) H 02/03/20 11:11 Eos # 0.1 K/mm3 (0.0-0.4) 02/03/20 11:11 Baso # 0.0 K/mm3 (0.0-0.1) 02/03/20 11:11 Add Manual Diff Complete 02/04/20 05:09 Total Counted 100 02/04/20 05:09 Seg Neutrophils % 55.1 % (40.0-70.0) 02/03/20 11:11 Seg Neuts % (Manual) 58.0 % (40.0-70.0) 02/04/20 05:09 Band Neutrophils % 0 % 02/04/20 05:09 Lymphocytes % (Manual) 30.0 % (13.4-35.0) 02/04/20 05:09 Reactive Lymphs % (Man) 0 % 02/04/20 05:09 Monocytes % (Manual) 10.0 % (0.0-7.3) H 02/04/20 05:09 Eosinophils % (Manual) 2.0 % (0.0-4.3) 02/04/20 05:09 Basophils % (Manual) 0 % (0.0-1.8) 02/04/20 05:09 Metamyelocytes % 0 % 02/04/20 05:09 Myelocytes % 0 % 02/04/20 05:09 Promyelocytes % 0 % 02/04/20 05:09 Blast Cells % 0 % 02/04/20 05:09 Nucleated RBC % Not Reportable 02/04/20 05:09 Seg Neutrophils # 2.5 K/mm3 (1.8-7.7) 02/03/20 11:11 Seg Neutrophils # Man 1.9 K/mm3 (1.8-7.7) 02/04/20 05:09 Band Neutrophils # 0.0 K/mm3 02/04/20 05:09 Lymphocytes # (Manual) 1.0 K/mm3 (1.2-5.4) L 02/04/20 05:09 Abs React Lymphs (Man) 0.0 K/mm3 02/04/20 05:09 Monocytes # (Manual) 0.3 K/mm3 (0.0-0.8) 02/04/20 05:09 Eosinophils # (Manual) 0.1 K/mm3 (0.0-0.4) 02/04/20 05:09 Basophils # (Manual) 0.0 K/mm3 (0.0-0.1) 02/04/20 05:09 Metamyelocytes # 0.0 K/mm3 02/04/20 05:09 Myelocytes # 0.0 K/mm3 02/04/20 05:09 Promyelocytes # 0.0 K/mm3 02/04/20 05:09 Blast Cells # 0.0 K/mm3 02/04/20 05:09 WBC Morphology Not Reportable 02/04/20 05:09 Hypersegmented Neuts Not Reportable 02/04/20 05:09 Hyposegmented Neuts Not Reportable 02/04/20 05:09 Hypogranular Neuts Not Reportable 02/04/20 05:09 Smudge Cells Not Reportable 02/04/20 05:09 Toxic Granulation Not Reportable 02/04/20 05:09 Toxic Vacuolation Not Reportable 02/04/20 05:09 Dohle Bodies Not Reportable 02/04/20 05:09 Pelger-Huet Anomaly Not Reportable 02/04/20 05:09 Deepak Rods Not Reportable 02/04/20 05:09 Platelet Estimate Consistent w auto 02/04/20 05:09 Clumped Platelets Not Reportable 02/04/20 05:09 Plt Clumps, EDTA Not Reportable 02/04/20 05:09 Large Platelets Not Reportable 02/04/20 05:09 Giant Platelets Not Reportable 02/04/20 05:09 Platelet Satelliting Not Reportable 02/04/20 05:09 Plt Morphology Comment Not Reportable 02/04/20 05:09 RBC Morphology Not Reportable 02/04/20 05:09 Dimorphic RBCs Not Reportable 02/04/20 05:09 Polychromasia Not Reportable 02/04/20 05:09 Hypochromasia Not Reportable 02/04/20 05:09 Poikilocytosis Not Reportable 02/04/20 05:09 Anisocytosis Not Reportable 02/04/20 05:09 Microcytosis Not Reportable 02/04/20 05:09 Macrocytosis Not Reportable 02/04/20 05:09 Spherocytes Not Reportable 02/04/20 05:09 Pappenheimer Bodies Not Reportable 02/04/20 05:09 Sickle Cells Not Reportable 02/04/20 05:09 Target Cells Not Reportable 02/04/20 05:09 Tear Drop Cells Not Reportable 02/04/20 05:09 Ovalocytes Not Reportable 02/04/20 05:09 Helmet Cells Not Reportable 02/04/20 05:09 Cnatu-[place] Bodies Not Reportable 02/04/20 05:09 [place] Rings Not Reportable 02/04/20 05:09 [place] Cells Not Reportable 02/04/20 05:09 Bite Cells Not Reportable 02/04/20 05:09 Crenated Cell Not Reportable 02/04/20 05:09 Elliptocytes Not Reportable 02/04/20 05:09 Acanthocytes (Spur) Not Reportable 02/04/20 05:09 Rouleaux Not Reportable 02/04/20 05:09 Hemoglobin C Crystals Not Reportable 02/04/20 05:09 Schistocytes Not Reportable 02/04/20 05:09 Malaria parasites Not Reportable 02/04/20 05:09 Chris Bodies Not Reportable 02/04/20 05:09 Hem Pathologist Commnt No 02/04/20 05:09 PT 13.8 Sec. (12.2-14.9) 02/03/20 11:11 INR 1.05 (0.87-1.13) 02/03/20 11:11 APTT 31.9 Sec. (24.2-36.6) 02/03/20 11:11 Sodium 144 mmol/L (137-145) 02/04/20 05:09 Potassium 3.1 mmol/L (3.6-5.0) L 02/04/20 05:09 Chloride 101.5 mmol/L (98-107) 02/04/20 05:09 Carbon Dioxide 28 mmol/L (22-30) 02/04/20 05:09 Anion Gap 18 mmol/L 02/04/20 05:09 BUN 25 mg/dL (9-20) H 02/04/20 05:09 Creatinine 3.0 mg/dL (0.8-1.5) H 02/04/20 05:09 Estimated GFR 27 ml/min 02/04/20 05:09 BUN/Creatinine Ratio 8 % 02/04/20 05:09 Glucose 127 mg/dL (75-100) H 02/04/20 05:09 Hemoglobin A1c 7.4 % (4-6) H 02/04/20 05:09 Lactic Acid 1.00 mmol/L (0.7-2.0) 02/03/20 11:11 Calcium 9.7 mg/dL (8.4-10.2) 02/04/20 05:09 Total Bilirubin 0.50 mg/dL (0.1-1.2) 02/04/20 05:09 Direct Bilirubin < 0.2 mg/dL (0-0.2) 02/03/20 11:11 AST 38 units/L (5-40) 02/04/20 05:09 ALT 17 units/L (7-56) 02/04/20 05:09 Alkaline Phosphatase 38 units/L (35-129) 02/04/20 05:09 Ammonia 43.0 umol/L (25-60) 02/03/20 11:11 Troponin T 0.073 ng/mL (0.00-0.029) H 02/03/20 14:30 Total Protein 7.8 g/dL (6.3-8.2) 02/04/20 05:09 Albumin 4.4 g/dL (3.9-5) 02/04/20 05:09 Albumin/Globulin Ratio 1.3 % 02/04/20 05:09 Triglycerides 114 mg/dL (2-149) 02/03/20 11:11 Cholesterol 102 mg/dL (50-199) 02/03/20 11:11 LDL Cholesterol Direct 45 mg/dL (50-130) L 02/03/20 11:11 HDL Cholesterol 48 mg/dL (40-59) 02/03/20 11:11 Cholesterol/HDL Ratio 2.12 % 02/03/20 11:11 Urine Color Straw (Yellow) 02/03/20 11:16 Urine Turbidity Clear (Clear) 02/03/20 11:16 Urine pH 8.0 (5.0-7.0) H 02/03/20 11:16 Ur Specific [place] 1.007 (1.003-1.030) 02/03/20 11:16 Urine Protein 30 mg/dl mg/dL (Negative) 02/03/20 11:16 Urine Glucose (UA) >=500 mg/dL (Negative) 02/03/20 11:16 Urine Ketones Neg mg/dL (Negative) 02/03/20 11:16 Urine Blood Neg (Negative) 02/03/20 11:16 Urine Nitrite Neg (Negative) 02/03/20 11:16 Urine Bilirubin Neg (Negative) 02/03/20 11:16 Urine Urobilinogen < 2.0 mg/dL (<2.0) 02/03/20 11:16 Ur Leukocyte Esterase Neg (Negative) 02/03/20 11:16 Urine WBC (Auto) < 1.0 /HPF (0.0-6.0) 02/03/20 11:16 Urine RBC (Auto) 1.0 /HPF (0.0-6.0) 02/03/20 11:16 Salicylates < 0.3 mg/dL (2.8-20.0) L 02/03/20 11:11 Urine Opiates Screen Negative 02/03/20 10:50 Urine Methadone Screen Negative 02/03/20 10:50 Acetaminophen < 5.0 ug/mL (10.0-30.0) L 02/03/20 11:11 Ur Barbiturates Screen Negative 02/03/20 10:50 Ur Phencyclidine Scrn Negative 02/03/20 10:50 Ur Amphetamines Screen Negative 02/03/20 10:50 U Benzodiazepines Scrn Negative 02/03/20 10:50 Urine Cocaine Screen Negative 02/03/20 10:50 U Marijuana (THC) Screen Negative 02/03/20 10:50 Drugs of Abuse Note Disclamer 02/03/20 10:50 Plasma/Serum Alcohol < 0.01 % (0-0.07) 02/03/20 11:11 Har[place]/IV: Voiding Method Urinal IV Catheter Type [Left Hand] INT / Saline Lock Active Medications - Current Medications Current Medications: Generic Name Dose Route Start Last Admin Trade Name Freq PRN Reason Stop Dose Admin Acetaminophen 650 mg 02/03/20 23:55 Tylenol PO Q4H PRN Pain MILD(1-3)/Fever >100.5/CUNHA Clonidine HCl 0.1 mg 02/03/20 23:45 02/04/20 02:10 Catapres PO 0.1 mg BID CELIA Administration Hydralazine HCl 100 mg 02/04/20 08:00 02/04/20 08:32 Apresoline PO 100 mg TID CELIA Administration Hydromorphone HCl 0.5 mg 02/03/20 23:56 Dilaudid IV Q3H PRN Pain , Severe (7-10) Sodium Chloride 1,000 mls @ 100 mls/hr 02/03/20 23:45 02/04/20 01:56 Nacl 0.9% 1000 Ml IV 02/04/20 15:00 100 mls/hr DIRECT CELIA Administration Nifedipine 60 mg 02/03/20 23:45 02/04/20 02:10 Procardia Xl PO 60 mg BID CELIA Administration Ondansetron HCl 4 mg 02/03/20 23:55 Zofran IV Q8H PRN Nausea And Vomiting Oxycodone/Acetaminophen 1 tab 02/03/20 23:56 Percocet 5/325 PO Q6H PRN Pain, Moderate (4-6) Pravastatin Sodium 40 mg 02/04/20 22:00 Pravachol PO QHS COUNT INCLUDES THE [facility] Sildenafil Citrate 20 mg 02/03/20 23:54 Revatio PO TID PRN Erectile Dysfunction Sodium Chloride 10 ml 02/04/20 10:00 Sodium Chloride Flush Syringe 10 Ml IV BID CELIA Sodium Chloride 10 ml 02/03/20 23:55 Sodium Chloride Flush Syringe 10 Ml IV PRN PRN LINE FLUSH
--- NOTE | 2020-02-04 10:40 | Consultation ---
History of Present Illness - Reason for Consult Consult date: 02/04/20 Reason for consult: AMS - History of Present Psychiatric Illness The patient's medical record was reviewed and the patient's progress was discussed with the medical staff. Power Aggarwal is a 49y/o male patient who says he was admitted into the hospital because he says his "sugar was low." The patient is lying in bed, awake. He is calm and cooperative. He is smiling. He is a/o x 3. The patient says, "I guess they called you because I was agitated and ranting." He then says, "I get like that when my sugar is low." The patient denies any thoughts of self harm or dying. He also denies any homicidal thoughts. The patient says "Oh no, oh no, I've never been suicidal. Ever." He also denies hallucinations of any kind, The patient denies any past psychiatric history, or ever being on any psych medic ations. He denies any illicit drug use, alcohol or nicotine use. The patient describes his mood as "good, but just being reflective of what I did yesterday." He then says, "just thinking about how I was agitated." The patient denies any problems with his sleep cycle or appetite. Spoke with the patient's spouse, Tatyana whom the patient was on the phone with when I entered the room a second time. She confirms that the patient doesn't have any psychiatric history and gets like this when his blood sugar is low. She says the patient is back to himself today. PAST PSYCHIATRIC HISTORY Diagnoses: Denies Suicide attempts or Self-harm behavior: Denies Prior psychiatric hospitalizations: Denies Substance Abuse history: Denies Previous psychiatric medications tried: Denies Outpatient treatment: Denies PAST MEDICAL HISTORY: Diabetic, CHF Family Psychiatric History: None reported or documented SOCIAL HISTORY Marital Status: Living Arrangements: With spouse and family Employment Status: Disabled Access to guns/weapons: Denies Education: Master's Degree History of Abuse: Denies Legal History: Denies REVIEW OF SYSTEMS Constitutional: Negative for weight loss ENT: Negative for stridor Respiratory: Negative for cough or hemoptysis All other systems reviewed and are negative MENTAL STATUS EXAMINATION General Appearance: Dressed appropriately Behavior: Calm, cooperative, smiling. Good eye contact Mood: "good" Affect and affective range: Congruent with stated mood Speech: Normal tone and pace Thought Process: Goal directed Thought content: Suicidal Ideation: Denies Homicidal Ideation: Denies Hallucination: Denies Delusions: None elicited Insight/Judgment: Limited Memory/Cognition: Limited ASSESSMENT Altered Mental Status RECOMMENDATIONS MEDICATIONS No medications at this time. Risks, benefits and alternatives of medications discussed with the patient, questions answered and consent obtained from patient. PSYCHOTHERAPY: Supportive psychotherapy provided MEDICAL: Per primary team DELIRIUM PRECAUTIONS: Please re-orient patient frequently, keep lights on during the day, and minimize benzodiazepines and opiates as these medications could worsen patient's confusion. MOLDER MACHINE: per medical team DISPOSITION: The patient does not meet the requirement for acute inpatient psychiatric treatment. He may discharge one medically clear. The patient understands that if suicidal thoughts or any feelings of endangerment are to arise he is to seek immediate assistance including but not limited to the crisis hotline, 911 and ER. The patient verbalizes understanding of the plan. The residency coordinator to further discuss safety plan with the patient The patient is to follow up with outpatient psych if needed, or primary in 7 to 14 days upon discharge Will sign off Thank you for the consult. Please contact with any questions and/or concerns. Medications and Allergies Allergies Allergy/AdvReac Type Severity Reaction Status Date / Time No Known Allergies Allergy Unverified 03/30/13 10:24 Home Medications Medication Instructions Recorded Confirmed Last Taken Type Furosemide [Lasix TAB] 40 mg PO BID 02/03/20 02/03/20 Unknown History Glimepiride [Amaryl] 4 mg PO BID 02/03/20 02/03/20 Unknown History NIFEdipine [Nifedipine ER] 60 mg PO BID 02/03/20 02/03/20 Unknown History Sildenafil [Revatio] 20 mg PO TID PRN 02/03/20 02/03/20 Unknown History Simvastatin 20 mg PO QHS 02/03/20 02/03/20 Unknown History cloNIDine [Catapres] 0.1 mg PO BID 02/03/20 02/03/20 Unknown History hydrALAZINE [Apresoline TAB] 100 mg PO TID 02/03/20 02/03/20 Unknown History Active Meds: Active Medications Acetaminophen (Tylenol) 650 mg PO Q4H PRN PRN Reason: Pain MILD(1-3)/Fever >100.5/CUNHA Clonidine HCl (Catapres) 0.1 mg PO BID [facility] Last Admin: 02/04/20 10:12 Dose: 0.1 mg Documented by: Hydralazine HCl (Apresoline) 100 mg PO TID [facility] Last Admin: 02/04/20 08:32 Dose: 100 mg Documented by: Hydromorphone HCl (Dilaudid) 0.5 mg IV Q3H PRN PRN Reason: Pain , Severe (7-10) Sodium Chloride (Nacl 0.9% 1000 Ml) 1,000 mls @ 100 mls/hr IV DIRECT [facility] Stop: 02/04/20 15:00 Last Admin: 02/04/20 01:56 Dose: 100 mls/hr Documented by: Nifedipine (Procardia Xl) 60 mg PO BID [facility] Last Admin: 02/04/20 10:12 Dose: 60 mg Documented by: Ondansetron HCl (Zofran) 4 mg IV Q8H PRN PRN Reason: Nausea And Vomiting Oxycodone/Acetaminophen (Percocet 5/325) 1 tab PO Q6H PRN PRN Reason: Pain, Moderate (4-6) Pravastatin Sodium (Pravachol) 40 mg PO QHS [facility] Sildenafil Citrate (Revatio) 20 mg PO TID PRN PRN Reason: Erectile Dysfunction Sodium Chloride (Sodium Chloride Flush Syringe 10 Ml) 10 ml IV BID [facility] Last Admin: 02/04/20 10:14 Dose: 10 ml Documented by: Sodium Chloride (Sodium Chloride Flush Syringe 10 Ml) 10 ml IV PRN PRN PRN Reason: LINE FLUSH Mental Status Exam - Vital signs Last Vital Signs Temp 98.5 F 02/04/20 07:45 Pulse 58 L 02/04/20 07:45 Resp 18 02/04/20 07:45 BP 141/75 02/04/20 10:12 Pulse Ox 99 02/04/20 07:45 Results Result Diagrams: 02/04/20 05:09 02/04/20 05:09 Abnormal lab results 02/03/20 02/03/20 02/03/20 Range/Units 11:11 11:11 11:11 WBC (4.5-11.0) K/mm3 RDW 12.7 L (13.2-15.2) % Miller % (Auto) 19.3 H (0.0-7.3) % Lymph # 1.0 L (1.2-5.4) K/mm3 Miller # 0.9 H (0.0-0.8) K/mm3 Monocytes % (Manual) (0.0-7.3) % Lymphocytes # (Manual) (1.2-5.4) K/mm3 Potassium 3.0 L (3.6-5.0) mmol/L Chloride 97.9 L (98-107) mmol/L BUN 30 H (9-20) mg/dL Creatinine 4.2 H (0.8-1.5) mg/dL Glucose 53 L (75-100) mg/dL Hemoglobin A1c (4-6) % Calcium 11.1 H (8.4-10.2) mg/dL Troponin T 0.084 H (0.00-0.029) ng/mL LDL Cholesterol Direct 45 L (50-130) mg/dL Urine pH (5.0-7.0) Salicylates < 0.3 L (2.8-20.0) mg/dL Acetaminophen (10.0-30.0) ug/mL 02/03/20 02/03/20 02/03/20 Range/Units 11:11 11:16 14:30 WBC (4.5-11.0) K/mm3 RDW (13.2-15.2) % Miller % (Auto) (0.0-7.3) % Lymph # (1.2-5.4) K/mm3 Miller # (0.0-0.8) K/mm3 Monocytes % (Manual) (0.0-7.3) % Lymphocytes # (Manual) (1.2-5.4) K/mm3 Potassium (3.6-5.0) mmol/L Chloride (98-107) mmol/L BUN (9-20) mg/dL Creatinine (0.8-1.5) mg/dL Glucose (75-100) mg/dL Hemoglobin A1c (4-6) % Calcium (8.4-10.2) mg/dL Troponin T 0.073 H (0.00-0.029) ng/mL LDL Cholesterol Direct (50-130) mg/dL Urine pH 8.0 H (5.0-7.0) Salicylates (2.8-20.0) mg/dL Acetaminophen < 5.0 L (10.0-30.0) ug/mL 02/04/20 02/04/20 02/04/20 Range/Units 05:09 05:09 05:09 WBC 3.2 L (4.5-11.0) K/mm3 RDW 12.9 L (13.2-15.2) % Miller % (Auto) (0.0-7.3) % Lymph # (1.2-5.4) K/mm3 Miller # (0.0-0.8) K/mm3 Monocytes % (Manual) 10.0 H (0.0-7.3) % Lymphocytes # (Manual) 1.0 L (1.2-5.4) K/mm3 Potassium 3.1 L (3.6-5.0) mmol/L Chloride (98-107) mmol/L BUN 25 H (9-20) mg/dL Creatinine 3.0 H (0.8-1.5) mg/dL Glucose 127 H (75-100) mg/dL Hemoglobin A1c 7.4 H (4-6) % Calcium (8.4-10.2) mg/dL Troponin T (0.00-0.029) ng/mL LDL Cholesterol Direct (50-130) mg/dL Urine pH (5.0-7.0) Salicylates (2.8-20.0) mg/dL Acetaminophen (10.0-30.0) ug/mL All other labs normal.
--- NOTE | 2020-02-04 12:22 | Consultation ---
History of Present Illness Consult date: 02/04/20 Consult reason: elevated troponin History of present illness: 49 year old female presenting with AMS, confusion and combativeness. Troponin checked in the ED and noted mildly elevated. ECG showing SB, no ischemic changes. Patient is a poor historian and no family at the bedside. Past History Past Medical History: hypertension Medications and Allergies Allergies Allergy/AdvReac Type Severity Reaction Status Date / Time No Known Allergies Allergy Unverified 03/30/13 10:24 Home Medications Medication Instructions Recorded Confirmed Last Taken Type Furosemide [Lasix TAB] 40 mg PO BID 02/03/20 02/03/20 Unknown History Glimepiride [Amaryl] 4 mg PO BID 02/03/20 02/03/20 Unknown History NIFEdipine [Nifedipine ER] 60 mg PO BID 02/03/20 02/03/20 Unknown History Sildenafil [Revatio] 20 mg PO TID PRN 02/03/20 02/03/20 Unknown History Simvastatin 20 mg PO QHS 02/03/20 02/03/20 Unknown History cloNIDine [Catapres] 0.1 mg PO BID 02/03/20 02/03/20 Unknown History hydrALAZINE [Apresoline TAB] 100 mg PO TID 02/03/20 02/03/20 Unknown History Active Meds: Active Medications Acetaminophen (Tylenol) 650 mg PO Q4H PRN PRN Reason: Pain MILD(1-3)/Fever >100.5/CUNHA Clonidine HCl (Catapres) 0.1 mg PO BID [facility] Last Admin: 02/04/20 10:12 Dose: 0.1 mg Documented by: Hydralazine HCl (Apresoline) 100 mg PO TID [facility] Last Admin: 02/04/20 08:32 Dose: 100 mg Documented by: Hydromorphone HCl (Dilaudid) 0.5 mg IV Q3H PRN PRN Reason: Pain , Severe (7-10) Sodium Chloride (Nacl 0.9% 1000 Ml) 1,000 mls @ 100 mls/hr IV DIRECT [facility] Stop: 02/04/20 15:00 Last Admin: 02/04/20 01:56 Dose: 100 mls/hr Documented by: Nifedipine (Procardia Xl) 60 mg PO BID [facility] Last Admin: 02/04/20 10:12 Dose: 60 mg Documented by: Ondansetron HCl (Zofran) 4 mg IV Q8H PRN PRN Reason: Nausea And Vomiting Oxycodone/Acetaminophen (Percocet 5/325) 1 tab PO Q6H PRN PRN Reason: Pain, Moderate (4-6) Pravastatin Sodium (Pravachol) 40 mg PO QHS [facility] Sodium Chloride (Sodium Chloride Flush Syringe 10 Ml) 10 ml IV BID [facility] Last Admin: 02/04/20 10:14 Dose: 10 ml Documented by: Sodium Chloride (Sodium Chloride Flush Syringe 10 Ml) 10 ml IV PRN PRN PRN Reason: LINE FLUSH Review of Systems ROS unobtainable: due to mental status Physical Examination Vital Signs Pulse Ox 99 02/03/20 10:18 General appearance: no acute distress Neck: Positive: neck supple Cardiac: Positive: Reg Rate and Rhythm Lungs: Positive: Normal Exam Abdomen: Positive: Soft Extremities: Absent: edema Results 02/04/20 05:09 02/04/20 05:09 Cardiac Enzymes 02/04/20 Range/Units 05:09 AST 38 (5-40) units/L Lipids 02/03/20 Range/Units 11:11 HDL Cholesterol 48 (40-59) mg/dL Cholesterol/HDL Ratio 2.12 % CBC 02/04/20 Range/Units 05:09 WBC 3.2 L (4.5-11.0) K/mm3 RBC 4.37 (3.65-5.03) M/mm3 Hgb 13.2 (11.8-15.2) gm/dl Hct 39.4 (35.5-45.6) % Plt Count 184 (140-440) K/mm3 Comprehensive Metabolic Panel 02/03/20 02/04/20 Range/Units 11:11 05:09 Sodium 144 (137-145) mmol/L Potassium 3.1 L (3.6-5.0) mmol/L Chloride 101.5 (98-107) mmol/L Carbon Dioxide 28 (22-30) mmol/L BUN 25 H (9-20) mg/dL Creatinine 3.0 H (0.8-1.5) mg/dL Glucose 127 H (75-100) mg/dL Calcium 9.7 (8.4-10.2) mg/dL Direct Bilirubin < 0.2 (0-0.2) mg/dL AST 38 (5-40) units/L ALT 17 (7-56) units/L Alkaline Phosphatase 38 (35-129) units/L Total Protein 7.8 (6.3-8.2) g/dL Albumin 4.4 (3.9-5) g/dL - EKG Interpretation EKG shows: bradycardia EKG interpretations - Telemetry EKG Rhythm: Sinus Bradycardia Assessment and Plan Altered mental status - reason for admission CT head - NAP Sinus bradycardia on ECG Essential hypertension Non-specific troponin Chronic renal failure Recommendations: No further cardiac work-up is needed for non-specific troponin in the setting of chronic renal failure and in the absence of other ACS symptoms or clinical findings
--- NOTE | 2020-02-04 12:44 | Discharge Summary ---
Providers - Providers Date of Admission: 02/03/20 16:11 Attending physician: ALEE REYES MD 02/04/20 00:01 Consult to Mental Health [CONS] Routine Reason For Exam: Acute psychosis 02/04/20 06:39 Consult to Physician [CONS] Routine Comment: Consulting Provider: HUE HUNTLEY Physician Instructions: Reason For Exam: ARIAS/CKD 02/04/20 09:35 Consult to Physician [CONS] Routine Comment: Consulting Provider: RYAN LYNN Physician Instructions: Reason For Exam: nstemi type 2 Primary care physician: MAT[employer]ING [employer]PERVISOR Hospitalization Condition: Stable Hospital course: 49-year-old male with history of hypertension, cerebrovascular accident, congestive heart failure, T2 DM, pulmonary hypertension and hyperlipidemia brought into the emergency room via EMS because patient became confused altered and combative. EMS had to sedate with Versed Benadryl and Haldol for chemical restraints. Patient has been delusional. Patient has been talking about his moderate swelling from 4 years ago. Patient started blaming neighbors and radiating the one who killed him. In the emergency room patient was sedated and had a blood pressure of 95/41. Patient was given fluid bolus in the emergency room and 20 minutes later he was more alert but still confused. Patient is oriented in place and person but not time. In the emergency room patient has been delusional and was talking back his doctor is a captain and kept mentioning about some Dami denies. Patient was still confused during my exam but was more alert. Oriented to some extent. But delusional. No fever or chills. No exposure to coronavirus. CT: IMPRESSION: 1. There is no CT evidence of acute intracranial process. 02/03: Renal function is improving, cardiology consult for Type 2 KS, await nephrology and Mental health consult. Will speak to family. Per patient this confusion was due to hypoglycemia It has happened before He has a hx of Renal failure and follow with Dr HUNTLEY He is improved today and back to baseline, ambulating in the room I decreased his glyburide to 2mg po bid from 4mg po bid (1) Acute encephalopathy Current Visit: Yes Status: Acute Plan to address problem: Etiology unclear Patient is delirious Will admit in observation for 23 hours We will get MRI brain Mental health consult No focal deficits (2) Acute psychosis Current Visit: Yes Status: Acute Plan to address problem: Etiology unclear Patient was given Haldol and Geodon in the emergency room/by EMS Mental health consult requested (3) Hypokalemia Current Visit: Yes Status: Acute Plan to address problem: Supplemented (4) ARIAS (acute kidney injury) Current Visit: Yes Status: Acute Plan to address problem: Probably secondary to ATN superimposed on chronic kidney disease Fluid challenge for 12 hours Baseline BUN/creatinine was 19 and 2.0 in 2013 which was his last admission for pneumonia (5) Hypertension Current Visit: Yes Status: Chronic Qualifiers: Hypertension type: essential hypertension Qualified Code(s): I10 - Essential (primary) hypertension Plan to address problem: Continue antihypertensive Adjust medications as necessary (6) T2DM (type 2 diabetes mellitus) Current Visit: Yes Status: Chronic Qualifiers: 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 use status Plan to address problem: Continue oral hypoglycemics and coverage (7) CHF (congestive heart failure) Current Visit: Yes Status: Chronic Qualifiers: Heart failure type: combined systolic and diastolic Plan to address problem: Continue Lasix (8) Pulmonary hypertension Current Visit: Yes Status: Chronic Plan to address problem: Patient on sildenafil 20 mg 3 times a day-continue the same (9) Hyperlipidemia Current Visit: Yes Status: Chronic Qualifiers: Hyperlipidemia type: mixed hyperlipidemia Qualified Code(s): E78.2 - Mixed hyperlipidemia Plan to address problem: Continue statins (10) DVT prophylaxis Current Visit: Yes Status: Acute Plan to address problem: On heparin and GI prophylaxis Disposition: DC-01 TO HOME OR SELFCARE Exam - Constitutional Vitals: Temp Pulse Resp BP Pulse Ox 98.5 F 58 L 18 141/75 99 02/04/20 07:45 02/04/20 07:45 02/04/20 07:45 02/04/20 10:12 02/04/20 07:45 Plan Activity: advance as tolerated, fall precautions Diet: low fat, diabetic Special Instructions: record daily weights, record daily BP diary, record blood sugar diary, physical therapy Additional Instructions: Note Glyburide, decreased to 2mg po bid. new prescription given. monitor blood glucose closely Follow up with: MARAL POOL MD [Primary Care Provider] - 3-5 Days HUE HUNTLEY MD [Staff Physician] - 7 Days Prescriptions: Glimepiride [Amaryl] 2 mg PO BID #30 tablet
[2020-02-04 13:07] VITALS: BP 135/73
--- NOTE | 2020-02-04 13:22 | Consultation ---
History of Present Illness - Reason for Consult chronic renal failure - History of Present Illness Very pleasant 49 y/o AAM, with h/o CKD IV in the setting of DM, HTN, CHF, pulmonary HTN, well known to our outpatient office as he sees my colleague Dr Tucker, with a baseline serum creatinine of 3.2-3.5 over this last year, presented to the ED secondary to AMS in the setting of hypoglycemia. He is back to his normal mental status at this point, and was able to have a coherent coversation with me this afternoon during my examination. He did have a mild ARIAS on CKD, with renal functino this morning improved to near his baseline. Past History Past Medical History: diabetes, hypertension, hyperlipidemia Past Surgical History: No surgical history Social history: no significant social history, lives with family Medications and Allergies Allergies Allergy/AdvReac Type Severity Reaction Status Date / Time No Known Allergies Allergy Unverified 03/30/13 10:24 Home Medications Medication Instructions Recorded Confirmed Last Taken Type Furosemide [Lasix TAB] 40 mg PO BID 02/03/20 02/03/20 Unknown History NIFEdipine [Nifedipine ER] 60 mg PO BID 02/03/20 02/03/20 Unknown History Sildenafil [Revatio] 20 mg PO TID PRN 02/03/20 02/03/20 Unknown History Simvastatin 20 mg PO QHS 02/03/20 02/03/20 Unknown History cloNIDine [Catapres] 0.1 mg PO BID 02/03/20 02/03/20 Unknown History hydrALAZINE [Apresoline TAB] 100 mg PO TID 02/03/20 02/03/20 Unknown History Glimepiride [Amaryl] 2 mg PO BID #30 tablet 02/04/20 Unknown Rx Active Meds: Active Medications Acetaminophen (Tylenol) 650 mg PO Q4H PRN PRN Reason: Pain MILD(1-3)/Fever >100.5/CUNHA Clonidine HCl (Catapres) 0.1 mg PO BID [facility] Last Admin: 02/04/20 10:12 Dose: 0.1 mg Documented by: Hydralazine HCl (Apresoline) 100 mg PO TID [facility] Last Admin: 02/04/20 08:32 Dose: 100 mg Documented by: Hydromorphone HCl (Dilaudid) 0.5 mg IV Q3H PRN PRN Reason: Pain , Severe (7-10) Sodium Chloride (Nacl 0.9% 1000 Ml) 1,000 mls @ 100 mls/hr IV DIRECT [facility] Stop: 02/04/20 15:00 Last Admin: 02/04/20 01:56 Dose: 100 mls/hr Documented by: Nifedipine (Procardia Xl) 60 mg PO BID [facility] Last Admin: 02/04/20 10:12 Dose: 60 mg Documented by: Ondansetron HCl (Zofran) 4 mg IV Q8H PRN PRN Reason: Nausea And Vomiting Oxycodone/Acetaminophen (Percocet 5/325) 1 tab PO Q6H PRN PRN Reason: Pain, Moderate (4-6) Pravastatin Sodium (Pravachol) 40 mg PO QHS [facility] Sodium Chloride (Sodium Chloride Flush Syringe 10 Ml) 10 ml IV BID [facility] Last Admin: 02/04/20 10:14 Dose: 10 ml Documented by: Sodium Chloride (Sodium Chloride Flush Syringe 10 Ml) 10 ml IV PRN PRN PRN Reason: LINE FLUSH Review of Systems All systems: negative Constitutional: weakness, malaise Exam - Vital Signs Vital signs: Vital Signs Pulse Ox 99 02/03/20 10:18 - General Appearance General appearance: well-developed, well-nourished EENT: ATNC, PERRL Neck: Present: neck supple, trachea midline Respiratory: Clear to Ascultation Heart: regular, S1S2 Gastrointestinal: Present: normal, normoactive bowel sounds Integumentary: no rash, warm and dry Neurologic: no focal deficit, alert and oriented x3 Musculoskeletal: Present: deferred Psychiatric: mood/affect appropriate, cooperative Results - Lab Results 02/04/20 05:09 02/04/20 05:09 Most recent lab results Calcium 9.7 mg/dL (8.4-10.2) 02/04/20 05:09 Assessment and Plan - Patient Problems (1) Acute on chronic renal failure Current Visit: Yes Status: Acute Qualifiers: Chronic kidney disease stage: stage 4 (severe) Plan to address problem: Likely pre-renal in etiology in the setting of hypoglycemia. Counseled patient on the importance of avoiding hypoglycemia as this can lead to further acute renal injuries. His renal function this am is essentially back to his baseline. Discussed with primary attending, and from renal standpoint patient is stable fo r discharge. He has follow up appointment along with lab appointment set up as an outpatient. He will follow up with Dr Tucker. (2) Acute encephalopathy Current Visit: Yes Status: Acute Plan to address problem: In the setting of hypoglycemia. His mentation has improved at this time back to baseline. (3) Type 2 diabetes mellitus with diabetic chronic kidney disease Current Visit: Yes Status: Chronic Qualifiers: Chronic kidney disease stage: stage 4 (severe) Plan to address problem: DM management per primary attending. Counseled patient on the importance of close glucose monitoring in order to avoid similar hypoglycemic episodes in the future. (4) Hypertensive chronic kidney disease with stage 1 through stage 4 chronic kidney disease, or unspecified chronic kidney disease Current Visit: Yes Status: Chronic Plan to address problem: Stable on current regimen. (5) Hypokalemia Current Visit: Yes Status: Acute Plan to address problem: Replete per protocol.
[2020-02-04] MEDS ORDERED: PRAVASTATIN 40 MG TAB PO SCH (22:00)
[2020-02-04] MEDS ORDERED: NON-FORMULARY EACH (Simvastatin [Simvastatin] 20 MG) PO SCH (22:00)
== END 2020-02-04 14:00 | disposition home or self-care (01) | DRG 683 ==
LOC: ED 10:01 → 4A 16:11
PROVIDERS: ADMIT Internal Medicine; ATTEND Internal Medicine
DX: N17.0 Acute kidney failure with tubular necrosis (principal); I13.0 Hypertensive heart and chronic kidney disease with heart failure and stage 1 through stage 4 chronic kidney disease, or unspecified chronic kidney disease; G93.40 Encephalopathy, unspecified; F23 Brief psychotic disorder; I50.40 Unspecified combined systolic (congestive) and diastolic (congestive) heart failure; N18.4 Chronic kidney disease, stage 4 (severe); E87.6 Hypokalemia; E11.22 Type 2 diabetes mellitus with diabetic chronic kidney disease; I27.20 Pulmonary hypertension, unspecified; E78.2 Mixed hyperlipidemia; R00.1 Bradycardia, unspecified; Z79.899 Other long term (current) drug therapy; Z86.73 Personal history of transient ischemic attack (TIA), and cerebral infarction without residual deficits
CPT/HCPCS: 36415; 70450; 80048; 80053; 80061; 80076; 80307; 80320; 81001; 82140; 83036; 84484; 85007; 85025; 85610; 85730; 93005; G0378; G0480; J3486; J7030